=== PATIENT | male | born 2000 | race Caucasian/White ===

== ENCOUNTER 2021-08-05 07:39 | Outpatient (RCR) | payer OTHER, SELFPAY ==
[2021-08-05] MEDS: FAMOTIDINE 20 MG TABLET PO (08:10)
[2021-08-05] MEDS: diphenhydrAMINE HCl CAP 25 MG CAPSULE PO (08:10)
[2021-08-05] MEDS: ACETAMINOPHEN 325 MG TABLET 650 MG PO (08:10)
--- NOTE | 2021-08-05 08:25 | PC.NURSE ---
Attempted IV 2 times with no success. Patient will get subcutaneous therapy.
[2021-08-05 08:26] VITALS: BP 143/94; PULSE 104; RESP 18; TEMP 37.2; O2SAT 97
[2021-08-05 09:14] VITALS: BP 144/91
--- NOTE | 2021-08-06 13:30 | PC.NURSE ---
talked with patient he stated he is feeling very well he had no questions or concerns.
== END 2021-08-05 15:24 | disposition home or self-care (01) ==
LOC: AMCINF 07:39
PROVIDERS: PCP Family Medicine; Referring Provider Family Medicine; Visit Provider Internal Medicine Hematology & Oncology
DX: Z23 Encounter for immunization (principal); U07.1 COVID-19
CPT/HCPCS: A9270; M0243; Q0244